=== PATIENT | male | born 1955 | race Caucasian/White ===

== ENCOUNTER 2023-03-24 11:13 | Emergency (ER) | payer MEDICARE, OTHER ==
[~2023-03-24] VITALS: Ht 172 cm; Wt 86.2 kg
[2023-03-24 11:26] VITALS: BP 192/109
--- NOTE | 2023-03-24 11:48 | ED Syncope ---
General Chief Complaint: Head/Cervical Problems Stated Complaint: PAIN IN BACK/NECK-POPPED PASSED OUT Nursing Triage Note: PATIENT REPORTS RIGHT SIDED NECK PAIN AND TIGHTNESS X3 DAYS. STATES HE FELT A "POP" IN HIS NECK AFTER TURNING IT TODAY AND STATES HE PASSED OUT FOR ABOUT A SECOND. CAUGHT HIMSELF BEFORE HE HIT THE GROUND. Source of Information: Patient Exam Limitations: No Limitations History of Present Illness Date Seen by Provider: Mar 24, 2023 Time Seen by Provider: 11:45 Initial Comments Patient is a 68-year-old male with a history of coronary artery disease, hypertension, A-fib not currently on anticoagulant who presents ED with right- sided neck pain that started 3 days ago. Patient states he is from [place]. He is currently in the area to [place]. States he did sleep on a couch but has slept on the couch in the past with no issues. Woke up with tightness to the right side and neck and had some limitations with movement. This pain became worse this morning while sitting on a log in the [facility]. States he was having difficulty moving his neck while setting and had his head down towards the ground. He attempted to stand up felt a pop in his neck and had a syncopal episode for less than a second. States he had a limb and immediately woke up. He has been taken ibuprofen for this neck pain. Denies history of syncope in the past. He had no associated chest pain or shortness of breath with the syncope. Denies of any current unilateral weakness, numbness and tingling, chest pain, shortness of breath, vomiting, visual changes cough, vomiting, diarrhea. Did felt feverish and chills over the past 3 days when he wakes up but that improved. Allergies and Home Medications Allergies Coded Allergies: Penicillins (Verified Allergy, Unknown, 03/24/23) Patient Home Medication List Home Medication List Reviewed: Yes Review of Systems Constitutional: chills, diaphoresis, fever; No malaise, No weakness EENTM: No hearing loss, No ear pain, No blurred vision, No double vision, No mouth pain, No throat pain, No throat swelling Respiratory: No cough Cardiovascular: No chest pain Gastrointestinal: No abdominal pain, No diarrhea, No nausea, No vomiting Genitourinary: No decreased output, No discharge Musculoskeletal: No back pain, No joint pain; muscle pain, neck pain Skin: No change in color, No change in hair/nails All Other Systems Reviewed Negative Unless Noted: Yes Past Vkygied-Hyxkiz-Hchjis Hx Patient Social History Tobacco Use?: No Smoking Status: Never a Smoker Alcohol Use?: Yes Alcohol type: Beer Physical Exam Vital Signs Vital Signs - First Documented 03/24/23 11:26 Temp 37.5 Pulse 86 Resp 16 B/P (MAP) 192/109 (136) Pulse Ox 99 O2 Delivery Room Air Capillary Refill : Less Than 3 Seconds Height, Weight, BMI Height: '" Weight: lbs. oz. kg; 29.00 BMI Method: General Appearance: No Apparent Distress, WD/WN HEENT: PERRL/EOMI, TMs Normal, Normal ENT Inspection, Pharynx Normal Neck: Limited Range of Motion (Tenderness to palpate bilateral cervical paraspinal muscle. Cervical midline. No bruit or stridor.) Cardiovascular: Regular Rate, Rhythm, No Edema, No Gallop, No JVD, No Murmur Respiratory: Chest Non Tender, Lungs Clear, Normal Breath Sounds, No Accessory Muscle Use, No Respiratory Distress Gastrointestinal: Normal Bowel Sounds, No Organomegaly, No Pulsatile Mass Back: Normal Inspection, No CVA Tenderness Extremities: Normal Capillary Refill, Normal Inspection, Normal Range of Motion, Non Tender Neurologic/Psychiatric: Alert, Oriented x3, No Motor/Sensory Deficits, Normal Mood/Affect, sql server developer II-XII Norm as Tested Coordination/Gait: Normal Finger to Nose, Normal Gait Motor/Sensory: No Motor Deficit, No Sensory Deficit, No Pronator Drift Skin: Normal Color, Warm/Dry Progress/Results/Core Measures Results/Orders Lab Results Laboratory Tests Test 03/24/23 11:55 Range/Units White Blood Count 10.4 4.3-11.0 10^3/uL Red Blood Count 4.55 4.30-5.52 10^6/uL Hemoglobin 14.1 13.3-17.7 g/dL Hematocrit 41 40-54 % Mean Corpuscular Volume 90 80-99 fL Mean Corpuscular Hemoglobin 31 25-34 pg Mean Corpuscular Hemoglobin Concent 35 32-36 g/dL Red Cell Distribution Width 11.9 10.0-14.5 % Platelet Count 188 130-400 10^3/uL Mean Platelet Volume 9.7 9.0-12.2 fL Immature Granulocyte % (Auto) 0 % Neutrophils (%) (Auto) 71 42-75 % Lymphocytes (%) (Auto) 18 12-44 % Monocytes (%) (Auto) 10 0-12 % Eosinophils (%) (Auto) 0 0-10 % Basophils (%) (Auto) 0 0-10 % Neutrophils # (Auto) 7.4 1.8-7.8 10^3/uL Lymphocytes # (Auto) 1.8 1.0-4.0 10^3/uL Monocytes # (Auto) 1.1 H 0.0-1.0 10^3/uL Eosinophils # (Auto) 0.0 0.0-0.3 10^3/uL Basophils # (Auto) 0.0 0.0-0.1 10^3/uL Immature Granulocyte # (Auto) 0.0 0.0-0.1 10^3/uL Prothrombin Time 13.9 12.2-14.7 SEC INR Comment 1.0 0.8-1.4 Activated Partial Thromboplast Time 28 24-35 SEC Sodium Level 135 135-145 MMOL/L Potassium Level 3.9 3.6-5.0 MMOL/L Chloride Level 104 98-107 MMOL/L Carbon Dioxide Level 23 21-32 MMOL/L Anion Gap 8 5-14 MMOL/L Blood Urea Nitrogen 19 H 7-18 MG/DL Creatinine 1.29 0.60-1.30 MG/DL Estimat Glomerular Filtration Rate 60 BUN/Creatinine Ratio 15 Glucose Level 122 H 70-105 MG/DL Calcium Level 9.4 8.5-10.1 MG/DL Corrected Calcium 9.6 8.5-10.1 MG/DL Magnesium Level 2.2 1.6-2.4 MG/DL Total Bilirubin 0.9 0.1-1.0 MG/DL Aspartate Amino Transf (AST/SGOT) 16 5-34 U/L Alanine Aminotransferase (ALT/SGPT) 15 0-55 U/L Alkaline Phosphatase 64 40-136 U/L Troponin I < 0.028 <0.028 NG/ML Total Protein 7.3 6.4-8.2 GM/DL Albumin 3.8 3.2-4.5 GM/DL My Orders Orders - AMELIA BRANNON PA Cbc And Automated Diff (03/24/23 11:43) Magnesium (03/24/23 11:43) Chest 1 View, Ap/Pa Only (03/24/23 11:43) Comprehensive Metabolic Panel (03/24/23 11:43) Protime With Inr (03/24/23 11:43) Partial Thromboplastin Time (03/24/23 11:43) O2 (03/24/23 11:43) Monitor-Rhythm Ecg Trace Only (03/24/23 11:43) Ed Iv/Invasive Line Start (03/24/23 11:43) Troponin I Denis (03/24/23 11:43) Ct Head Wo (03/24/23 11:43) Ct Angio Head/Neck (03/24/23 12:49) Ketorolac Injection (Ketorolac Injection (03/24/23 13:00) Orphenadrine Inj (Ed Only) (Orphenadrine (03/24/23 13:00) Iohexol Injection (Omnipaque 350 Mg/Ml 1 (03/24/23 13:00) Received Contrast (Hold Metformin- Contr (03/24/23 13:00) Ns (Ivpb) 100 Ml (Sodium Chloride 0.9% 1 (03/24/23 13:00) Medications Given in ED Current Medications Medications Dose Ordered Sig/Olena Route Start Time Stop Time Status Last Admin Dose Admin Iohexol 75 ml ONCE ONCE IV 03/24/23 13:00 03/24/23 13:09 DC 03/24/23 13:31 75 ML Ketorolac Tromethamine 30 mg ONCE ONCE IVP 03/24/23 13:00 03/24/23 13:01 DC 03/24/23 13:22 30 MG Orphenadrine Citrate 60 mg ONCE ONCE IM 03/24/23 13:00 03/24/23 13:01 DC 03/24/23 13:21 60 MG Sodium Chloride 100 ml ONCE ONCE IV 03/24/23 13:00 03/24/23 13:09 DC 03/24/23 13:31 77 ML Vital Signs/I&O 03/24/23 03/24/23 03/24/23 11:26 11:46 14:25 Temp 37.5 Pulse 86 74 Resp 16 16 B/P (MAP) 192/109 (136) Pulse Ox 99 99 99 O2 Delivery Room Air Room Air Room Air Blood Pressure Mean: 136 Comment Sinus rhythm, 83 bpm, QRS duration 92 MS, QTc 379 MS. Departure Communication (PCP) differential diagnosis cervical muscle strain, carotid artery dissection, stroke, arrhythmia, thrombus, carotid artery disease, ACS. Patient with a syncopal episode while hunting. Patient experiencing bilateral neck pain for the past 3 to 4 days. Patient is from [place] currently in the area hunting [place]. States he is sleeping on a couch with a smaller pillow which could be associated to his symptoms. Does have cervical paraspinal muscle tenderness and cervical midline. He has no numbness and tingling in the upper extremities. He is not experiencing any chest pain or shortness of breath. Pain appears to be rotational of the cervical spine. patient denies hitting his head. He states he stood up when he had the syncopal episode hitting a limb falling forward. States he lost consciousness for at least a second. Was brought to ED by POV. Denies hitting his head. No current dizziness visual changes unilateral muscle weakness. NIH is 0. Cardiac work-up CT scan of the head was ordered. CT scan of the head was negative for acute abnormality. EKG showed normal sinus rhythm without evidence of arrhythmia, ST elevation or depression. History A-fib not currently on anticoagulant. Currently in normal sinus rhythm. Does take a baby aspirin. CBC, CMP grossly markable. Normal troponin. Not tachycardic or hypo xic. He was hypertensive but did improve without any treatment. Currently on blood pressure medication. Clinically does not appear cardiac. Not currently in A-fib. Does have cervical paraspinal muscle tenderness with decreased range of motion. No meningeal signs. No fever vomiting. Did obtain a CT angio of the head and neck to rule out a dissection or carotid narrowing as patient did hear experience a opo in his neck when he fell. CT angio of the head and neck did not show any obvious stenosis or dissection. Patient did receive Toradol and Norflex with some improvement of his pain. Suspect that this is more muscular in nature. Discussed changing pillow sleeping on a mattress. Continue with anti-inflammatories. Does not want anything orally for pain. He was not orthostatic hypotensive. No syncopal episode at this time. Outpatient follow- up with your PCP in 2 to 3 days for reevaluation. Patient states he wants to go back hunting. I suggest taking the next few days off. Impression Primary Impression: Neck pain Disposition: 01 HOME, SELF-CARE Condition: Stable Departure-Patient Inst. Decision time for Depature: 14:20 Ref[place]: [facility] [place]YSIC[place] (PCP) Primary Care Physician Patient Instructions: Neck Pain ED Add. Discharge Instructions: Recommend anti-inflammatories. If any worsening pain return back to ED. Follow-up your primary care physician for further evaluation. Commend better pillow to sleep with. May use heat. All discharge instructions reviewed with patient and/or family. Voiced understanding. AMELIA BRANNON Mar 24, 2023 11:48
[2023-03-24 12:02] LABS: BASOPHILS % (AUTO) 0 % (0-10); EOSINOPHILS % (AUTO) 0 % (0-10); HEMATOCRIT 41 % (40-54); HEMOGLOBIN 14.1 g/dL (13.3-17.7); LYMPHOCYTES # (AUTO) 1.8 10^3/uL (1.0-4.0); LYMPHOCYTES % (AUTO) 18 % (12-44); MEAN CORPUSCULAR HEMOGLOBIN 31 pg (25-34); MEAN CORPUSCULAR HGB CONC 35 g/dL (32-36); MEAN CORPUSCULAR VOLUME 90 fL (80-99); MEAN PLATELET VOLUME 9.7 fL (9.0-12.2); MONOCYTES # (AUTO) 1.1 10^3/uL (0.0-1.0); MONOCYTES % (AUTO) 10 % (0-12); NEUTROPHILS # (AUTO) 7.4 10^3/uL (1.8-7.8); NEUTROPHILS % (AUTO) 71 % (42-75); PLATELET COUNT 188 10^3/uL (130-400); WHITE BLOOD COUNT 10.4 10^3/uL (4.3-11.0)
[2023-03-24 12:13] LABS: ALBUMIN 3.8 GM/DL (3.2-4.5); CHLORIDE 104 MMOL/L (98-107); POTASSIUM 3.9 MMOL/L (3.6-5.0); SODIUM 135 MMOL/L (135-145)
[2023-03-24 12:15] LABS: CALCIUM 9.4 MG/DL (8.5-10.1); PROTHROMBIN TIME PATIENT 13.9 SEC (12.2-14.7)
[2023-03-24 12:16] LABS: GLUCOSE 122 MG/DL (70-105); TOTAL PROTEIN 7.3 GM/DL (6.4-8.2)
[2023-03-24 12:17] LABS: CARBON DIOXIDE 23 MMOL/L (21-32)
[2023-03-24 12:18] LABS: BILIRUBIN,TOTAL 0.9 MG/DL (0.1-1.0)
--- NOTE | 2023-03-24 12:18 | Diagnostic Imaging Report ---
EXAMINATION: Chest 1 view HISTORY: Chest pain COMPARISON: None available. FINDINGS: Heart size and pulmonary vasculature are normal. There is mild atelectasis within the lung bases. No pleural effusion or pneumothorax. Degenerative changes of the thoracic spine. Osseous structures are otherwise intact. IMPRESSION: 1. No acute radiographic abnormality in the chest. Dictated by: Dictated on workstation # [id number]
[2023-03-24 12:19] LABS: ALKALINE PHOSPHATASE 64 U/L (40-136); CREATININE SERUM 1.29 MG/DL (0.60-1.30); GFR ESTIMATED 60
[2023-03-24 12:20] LABS: BUN/CREATININE RATIO 15
[2023-03-24 12:22] LABS: ALANINE AMINOTRANSFERASE 15 U/L (0-55)
[2023-03-24 12:23] LABS: MAGNESIUM 2.2 MG/DL (1.6-2.4)
--- NOTE | 2023-03-24 12:45 | Diagnostic Imaging Report ---
EXAMINATION: CT head without contrast. TECHNIQUE: Multiple contiguous axial images were obtained through the brain without the use of intravenous contrast. All CT scans use one or more of the following dose optimizing techniques: automated exposure control, MA and/or KvP adjustment based on patient size and exam type or iterative reconstruction. HISTORY: syncope, neck pain, head pain COMPARISON: None available. FINDINGS: The ventricles and sulci are normal. No abnormal attenuation of brain parenchyma is present. No acute intracranial hemorrhage or abnormal extra-axial fluid collections are present. No hyperdense vessel. The calvarium is intact. The mastoid air cells are clear. There is mucosal thickening of the paranasal sinuses. The orbits are normal. IMPRESSION: 1. No acute intracranial abnormality. Dictated by: Dictated on workstation # [id number]
[2023-03-24] MEDS ORDERED: NS 100 ML (IVPB) BAG IV ONE (13:00)
[2023-03-24] MEDS ORDERED: HOLD METFORMIN - RECEIVED CONTRAST 20 ML VIAL IV SCH (13:00)
[2023-03-24] MEDS ORDERED: KETOROLAC INJ 30 MG/ML VIAL IVP ONE (13:00)
[2023-03-24] MEDS ORDERED: IOHEXOL 350 MG/ML 100 ML (OMNIPAQUE 350) VIAL IV ONE (13:00)
[2023-03-24] MEDS ORDERED: ORPHENADRINE 60 MG/2 ML AMP (ED ONLY) IM ONE (13:00)
--- NOTE | 2023-03-24 14:06 | Diagnostic Imaging Report ---
PROCEDURE: CT angiography of the head and CT angiography of the neck with and without contrast. TECHNIQUE: Contiguous noncontrast images were obtained from the skull base through the vertex. After intravenous contrast administration, helical CT angiography of the neck was performed. Source data was reformatted into 3D MIP projections. Delayed post contrast acquisition was also obtained. Auto Exposure Controls were utilized during the CT exam to meet ALARA standards for radiation dose reduction. INDICATION: Fall, head and neck pain. Head: Delayed postcontrast enhanced head CT showed no contrast extravasation hemorrhage mass or abnormal enhancement. No pneumocephalus. No hemo-sinus. No visible fracture. There is an anterior and posterior bilateral ethmoid membrane disease opacifying less than 50% ethmoid air cells. Remaining sinuses clear. Orbital contents normal. CT angiogram neck: Cervical vertebral arteries patent and codominant. There is mild non-stenosing calcified plaque and intimal thickening at the bilateral carotid bulbs and bifurcations. No hemodynamically significant common or internal carotid stenosis. No cervical dissection. No cervical spinal fracture or traumatic malalignment. There is conventional branching of the great vessels. CT angiogram head: The intradural vertebral arteries, the basilar and the ASSET PROTECTION REPRESENTATIVE segments and branches are patent. The intracranial ICAs are widely patent. The bilateral anterior and middle cerebral arterial segments and primary branches are patent. No aneurysm, thrombus, branch occlusion or vascular malformation. There is normal enhancement of the major dural venous sinuses. IMPRESSION: 1. No acute abnormality identified at CT angiographic study neck and head. 2. Some chronic-appearing paranasal sinus membrane disease greatest at the ethmoids without air-fluid level. Dictated by: Dictated on workstation # [id number]
== END 2023-03-24 14:25 | disposition home or self-care (01) ==
LOC: ER 11:19
DX: M54.2 Cervicalgia (principal)
CPT/HCPCS: 36415; 70450; 70496; 70498; 71045; 80053; 83735; 84484; 85025; 85610; 85730; 93005; 93041; 96372; 96374